=== PATIENT | male | born 1955 | race Caucasian/White ===

== ENCOUNTER → 2019-04-17 | Outpatient (CLI) | payer MEDICARE ==
--- NOTE | 2019-04-17 10:41 | Diagnostic Imaging Report ---
INDICATION: Ankle pain. Comparison made with prior examination 04/17/2019. FINDINGS: There is moderate 3 compartment osteoarthritic change. There is no acute fracture or dislocation. There does appear to be an old fracture deformity of distal fibula. Some soft tissue swelling. IMPRESSION: Moderate osteoarthritic change about the left ankle with old fracture deformity of the distal fibula. Dictated by: Dictated on workstation # [id number]
== END ==
LOC: RAD 09:00
PROVIDERS: ATTEND Nurse Practitioner Family
DX: M19.072 Primary osteoarthritis, left ankle and foot (principal); M21.962 Unspecified acquired deformity of left lower leg
CPT/HCPCS: 73610

== ENCOUNTER → 2019-07-23 | Outpatient (CLI) | payer MEDICARE, OTHER ==
--- NOTE | 2019-07-23 08:29 | Diagnostic Imaging Report ---
INDICATION: Chronic right knee pain. Time of exam: 8:16 AM 3 views of the right knee were obtained. There are significant medial and patellofemoral compartmental degenerative changes, with joint space narrowing and marginal spurring. Lateral compartment is maintained. No fracture, dislocation or effusion is detected. IMPRESSION: Degenerative changes. No acute bony abnormality is detected. Dictated by: Dictated on workstation # [id number]
== END ==
LOC: RAD 07:57
PROVIDERS: ATTEND Nurse Practitioner Family
DX: M17.11 Unilateral primary osteoarthritis, right knee (principal)
CPT/HCPCS: 73562